=== PATIENT | female | born 1975 | race Asian ===

== ENCOUNTER 2023-10-06 03:44 | Emergency (ER) | payer BC, SELFPAY ==
[2023-10-06 03:53] VITALS: BP 130/86
[2023-10-06 04:08] VITALS: BP 130/90
[2023-10-06 04:10] VITALS: BP 130/90
--- NOTE | 2023-10-06 04:13 | ED.GENMED ---
History of Present Illness
<LISSY Escoto - Last Filed: 10/06/23 04:38>
General
Chief Complaint: Heart Rate Problem
Source: patient
Exam Limitations: none
Time Seen by Provider: 10/06/23 04:13
Travel History
Have you had any contact with someone who has COVID-19?: No
Do you have any symptoms of coronavirus? Fever > 100 degrees, chills, cough, shortness of breath, sore throat, loss of taste or smell, muscle aches, or headache?: No
History of Present Illness
History of Present Illness:
48 year old female with hx of hypothyroidism on levothyroxine who presents with symptoms of 'feeling like food is stuck' in her chest and heart racing that began at 0200 today. Pt states she woke up with these symptoms and states she is feeling
uneasy. She described the sensation to her chest as indigestion and localized to midsternal chest. However, she states her current symptoms feel different to her usual symptoms of indigestion. She also reports her mouth is dry. Denies chest pain,
SOB, abdominal pain, n/v/d, fevers/chills, cough, sore throat. Pt states she recently returned from [place] 2 weeks ago. Denies any sick contacts.
Past History
<LISSY Escoto - Last Filed: 10/06/23 04:38>
Past History
ED Past Medical History: Hypothyroidism
ED Past Surgical History: Gynecological ( x2)
Social History
Tobacco: Non-smoker
Alcohol: None
Drug: None
Personal:
Living: with family
Review of Systems
<LISSY Escoto - Last Filed: 10/06/23 04:38>
Review of Systems
Allergies reviewed?: Yes
All Other Systems: ROS reviewed and negative except as documented in HPI and ROS
Constitutional: Reports no symptoms
EENT: Reports other (dry mouth)
Respiratory: Reports no symptoms
Cardiac: Reports other (chest discomfort)
ABD/GI: Reports no symptoms
: Reports no symptoms
Musculoskeletal: Reports no symptoms
Skin: Reports no symptoms
Neurological: Reports no symptoms
Endocrine: Reports no symptoms
Hematologic/Lymphatic: Reports no symptoms
Psychiatric: Reports no symptoms
Phy Exam
<Emmett Schwartz [facility] - Last Filed: 10/06/23 04:38>
General Physical Exam
General Presentation: well appearing and no apparent distress
General age: appears stated age
General Skin: warm and dry
General Habitus: normal
General Mental: alert
General Hydration: dry mucous membranes
Cardiovascular Exam
Cardiovascular Exam: no edema, no gallop, no murmur, normal peripheral pulses and tachycardia
Pulmonary Exam
Pulmonary Exam: lungs clear, no respiratory distress, no rales, no crackles, no rhonchi, no wheezing and no cough
Gastrointestinal Exam
Gastrointestinal Exam: non tender, soft, no pulsatile mass and non distended
Skin Exam
Skin Exam: normal color and warm/dry
Psychiatric Exam
Psychiatric Exam: normal mood/affect
Course
<Emmett Schwartz [facility] - Last Filed: 10/06/23 04:38>
Orders/Labs/Results
Orders:
Orders
10/06/23 03:55
Electrocardiogram (*1) Urgent
Reason for Study: Palpitations
EKG- Treatment ONCE
10/06/23 04:59
Pulse Ox/cont/shift [RESP] Stat
Quantity: 1
10/06/23 05:01
Cardiac Monitoring- Treatment ONCE
CR Chest - 2 Views Urgent
Comment:
Reason For Exam: chest tight
10/06/23 05:12
Complete Blood Count/With Diff Urgent
Comprehensive Metabolic Panel Urgent
TSH Reflex To Free T4 Urgent
Troponin I Urgent
10/06/23 05:23
Aspirin Chewable [Low Strength Aspirin] 324 mg PO NOW STA
Pantoprazole [Protonix IV] 40 mg IV NOW STA
Abnormal Lab Results
10/06/23
05:12
MPV 12.0 H fL
(7.4-10.4)
Chloride 108 H mmol/L
(98-107)
Glucose 111 H mg/dl
(70-99)
10/06/23 05:12
10/06/23 05:12
Vital Signs
Initial and Last Documented VS:
Initial Vital Signs
Temp Pulse Resp BP Pulse Ox
98.9 F 92 24 130/86 100
10/06/23 03:53 10/06/23 03:53 10/06/23 03:53 10/06/23 03:53 10/06/23 03:53
Last Documented Vital Signs
Temp Pulse Resp BP Pulse Ox
97.6 F 94 20 143/84 99
10/06/23 04:10 10/06/23 05:45 10/06/23 05:45 10/06/23 05:36 10/06/23 05:45
<Payam Urban, DO - Last Filed: 10/06/23 06:22>
Orders/Labs/Results
Orders:
Orders
10/06/23 03:55
Electrocardiogram (*1) Urgent
Reason for Study: Palpitations
EKG- Treatment ONCE
10/06/23 04:59
Pulse Ox/cont/shift [RESP] Stat
Quantity: 1
10/06/23 05:01
Cardiac Monitoring- Treatment ONCE
CR Chest - 2 Views Urgent
Comment:
Reason For Exam: chest tight
10/06/23 05:12
Complete Blood Count/With Diff Urgent
Comprehensive Metabolic Panel Urgent
TSH Reflex To Free T4 Urgent
Troponin I Urgent
10/06/23 05:23
Aspirin Chewable [Low Strength Aspirin] 324 mg PO NOW STA
Pantoprazole [Protonix IV] 40 mg IV NOW STA
Abnormal Lab Results
10/06/23
05:12
MPV 12.0 H fL
(7.4-10.4)
Chloride 108 H mmol/L
(98-107)
Glucose 111 H mg/dl
(70-99)
10/06/23 05:12
10/06/23 05:12
Vital Signs
Initial and Last Documented VS:
Initial Vital Signs
Temp Pulse Resp BP Pulse Ox
98.9 F 92 24 130/86 100
10/06/23 03:53 10/06/23 03:53 10/06/23 03:53 10/06/23 03:53 10/06/23 03:53
Last Documented Vital Signs
Temp Pulse Resp BP Pulse Ox
97.6 F 94 20 143/84 99
10/06/23 04:10 10/06/23 05:45 10/06/23 05:45 10/06/23 05:36 10/06/23 05:45
<LISSY Escoto - Last Filed: 10/06/23 04:38>
MDM/Problems Addressed
Differential Diagnosis Includes:
GERD, hyperthyroidism, anxiety
MDM/Problems Addressed:
48 year old female who presents with feelings of discomfort to her chest and heart racing that began at 0200 today.
<LISSY Escoto - Last Filed: 10/06/23 04:38>
*Critical Care Note
Total Time (30-74mins, 75-104mins- exclusive of procedures): Not Applicable
<Payam Urban DO - Last Filed: 10/06/23 06:22>
*Radiology
Radiology exam reviewed: preliminary read by ED provider (cxr nad)
*Pulse Oximetry
Patient hypoxic: no
*EKG
Interpreted by ED Provider?: Yes
EKG Intrepretation Date: 10/06/23
EKG Intrepretation Time: 04:03
Interpretation: normal
Comparison EKG: no changes
Heart Rate: 100
Rate: normal
Rhythm: sinus
[place]: normal axis
Interval: normal interval
QRS Pattern: normal QRS
Ischemia: no ischemia
*Investor Relations Analyst Interpretation
Rate: normal
Interpretation: normal
Heart Rate: 92
Rhythm: sinus
Data Reviewed
Further Testing Considered But Not Given:
ct chest not indicated
<Payam Urban, - Last Filed: 10/06/23 06:22>
Patient Management
Social determinants of health affecting care: Living situation
Escalation/DeEscalation of care consider admission/obs:
admit not indicated
ED Attending Note
<LISSY Escoto - Last Filed: 10/06/23 04:38>
-
Portions of this chart may have been created with voice recognition software.� Occasional wrong word or��sound alike� substitutions may have occurred due to the inherent limitations of voice recognition software.
Discharge Plan
Departure
Patient Disposition: Home (Routine Discharge)
Date of Disposition: 10/06/23
Time of Disposition: 06:19
Patient with high blood pressure during this ER visit?: Yes
Condition: Good
Discharge Problem:
Palpitations
Instructions: Palpitations (DC), BLOOD PRESSURE
Prescriptions:
No Action
levothyroxine [Synthroid] 75 mcg Tablet
75 mcg PO DAILY
Patient Comments:
11/20/21 pt states she gets this sent from [place]
famotidine [Pepcid] 20 mg Tablet
20 mg PO DAILY PRN (Reason: indigestion)
cholecalciferol (vitamin D3) 50 mcg (2,000 unit) Capsule
50 mcg PO DAILY
ferrous sulfate [FeroSul] 325 mg (65 mg iron) Tablet
325 mg PO BID Qty: 0 0RF
Referrals:
UNKNOWN - PT DOES,NOT KNOW [Family Provider] -
Activity Restrictions/Additional Instructions:
Follow up with primary care. Return for any concerns.
Interventions
Interventions:
*Risk Screen - Suicide Last Done: 10/06/23 03:53
*General Assessment Last Done: 10/06/23 05:27
*Neglect/Abuse Screening Last Done: 10/06/23 03:53
ED- Fall Risk Assessment Last Done: 10/06/23 05:15
*ED COVID-19 Vaccine History Last Done: 10/06/23 05:27
ED- Cardiac Assessment Last Done: 10/06/23 05:15
ED- Pulmonary Assessment Last Done: 10/06/23 05:15
Discharge Date and Time
Print Language: SLOVENIAN
[2023-10-06 05:00] VITALS: BP 123/87
[2023-10-06 05:21] VITALS: BMI 28.8
[2023-10-06 05:30] LABS: % Basophils 0.8 % (0-2); % Eosinophils 1.2 % (0-6); % Immature Granulocytes 0.3 % (0-0.5); % Lymphocytes 23.1 % (20.5-51.1); % Monocytes 6.2 % (1.7-9.3); % Neutrophils 68.4 % (42.2-75.2); Absolute Basophils 0.1 10^3/uL (0-0.2); Absolute Eosinophils 0.1 10^3/uL (0-0.7); Absolute Lymphocytes 1.5 10^3/uL (1.2-3.4); Absolute Monocytes 0.4 10^3/uL (0.1-0.6); Absolute Neutrophils 4.4 10^3/uL (1.4-6.5); Hematocrit 43.5 % (37.0-47.0); Hemoglobin 14.7 g/dL (12.0-16.0); Mean Corp Hgb Conc. 33.8 g/dL (33.0-37.0); Mean Corpuscular Hgb 29.6 pg (27.0-31.0); Mean Corpuscular Volume 87.5 fL (81.0-99.0); Nucleated Red Blood Cells % 0 %; Platelet Count 213 10^3/uL (130-400); Red Blood Cell Count 4.97 10^6/uL (4.20-5.40); Red Cell Dist. Width 14.3 % (11.5-14.5); White Blood Cell Count 6.4 10^3/uL (4.8-10.8)
[2023-10-06] MEDS: PROTONIX IV 40 MG IV (05:31)
[2023-10-06] MEDS: LOW STRENGTH ASPIRIN 324 MG PO (05:31)
[2023-10-06 05:36] VITALS: BP 143/84
[2023-10-06 05:44] LABS: ALT (SGPT) 19 U/L (0-35); AST (SGOT) 24 U/L (14-36); Albumin 4.5 g/dl (3.5-5.0); Alkaline Phosphatase 81 U/L (38-126); Blood Urea Nitrogen 13 mg/dl (7-17); Calcium 9.6 mg/dl (8.4-10.2); Carbon Dioxide 23 mmol/L (22-30); Chloride 108 mmol/L (98-107); Estimated Creatinine Clearance 96 ml/min; Glucose 111 mg/dl (70-99); Potassium 3.6 mmol/L (3.5-5.1); Sodium 140 mmol/L (135-145); Total Bilirubin 0.4 mg/dl (0.2-1.3); Total Protein 7.5 g/dl (6.3-8.2); eGFR > 60.00
[2023-10-06 05:55] LABS: Troponin I < 0.012 ng/ml
[2023-10-06 06:00] VITALS: BP 127/84
[2023-10-06 06:14] LABS: TSH Reflex To Free T4 3.89 uIU/ml (0.47-4.68)
== END 2023-10-06 06:39 | disposition home or self-care (01) ==
LOC: EMR 03:44
PROVIDERS: EMERGENCY PHYSICIAN Emergency Medicine
DX: R00.2 Palpitations (principal); R03.0 Elevated blood-pressure reading, without diagnosis of hypertension; E03.9 Hypothyroidism, unspecified
CPT/HCPCS: 99285; 96374; 71046; 80053; 84443; 84484; 85025; 93005

== ENCOUNTER → 2024-01-01 09:23 | Outpatient (REF) | payer BC, SELFPAY | LOC: HWWDC 09:23 | PROVIDERS: ATTENDING PHYSICIAN Family Medicine | DX: Z12.31 Encounter for screening mammogram for malignant neoplasm of breast (principal) | CPT/HCPCS: 77063; 77067 ==